=== PATIENT | female | born 1975 | race Caucasian/White ===

== ENCOUNTER 2022-08-24 16:26 | Outpatient (CLI) | payer OTHER | END 2022-08-24 16:27 | disposition home or self-care (01) | LOC: BICCT 16:26 | PROVIDERS: ATTEND Neurological Surgery | DX: M54.14 Radiculopathy, thoracic region (principal); M54.6 Pain in thoracic spine; M25.78 Osteophyte, vertebrae; M46.04 Spinal enthesopathy, thoracic region | CPT/HCPCS: 72128 ==